=== PATIENT | female | born 1980 | race Caucasian/White ===

== ENCOUNTER → 2018-12-16 | Outpatient (CLI) | payer BC ==
[2015-05-18 08:00] VITALS: BP 112/96
[~2018-12-16] MED LIST: ONDA8TAB12 PO; TRAM50TA PO
--- NOTE | 2018-12-16 10:45 | RAD ---
EXAM: Pelvic sonogram. HISTORY: Pain. TECHNIQUE: Sonographic imaging of the pelvis was performed. COMPARISON: None. FINDINGS: The uterus measures 10.1 x 4.4 x 5.5 cm. The endometrial stripe measures 5 mm in thickness. The ovaries are normal in size and demonstrate normal blood flow. There is no adnexal mass or cyst. There is no pelvic free fluid. IMPRESSION: Unremarkable pelvic sonogram. Electronically signed by: Gricel Suero MD (12/16/2018 10:42 AM) [place] [id number]
== END | disposition home or self-care (01) ==
LOC: US 08:43
PROVIDERS: ATTEND Physician Assistant Medical
DX: R10.31 Right lower quadrant pain (principal)
CPT/HCPCS: 76856

== ENCOUNTER → 2019-07-07 | Outpatient (CLI) | payer BC ==
[2015-05-18 08:00] VITALS: BP 112/96
--- NOTE | 2019-07-07 12:19 | RAD ---
CHEST PA LATERAL History: Cough Comparison: May 18, 2015 Findings: 2 views of the chest are submitted. There is no infiltrate, pneumothorax, or effusion. Pericardial cardiac silhouette is within normal limits in size. Impression: 1. There is no radiographic evidence of acute cardiopulmonary disease. Electronically signed by: Jose To MD (07/07/2019 12:16 PM) [id number]
== END ==
LOC: RAD 11:55
PROVIDERS: ATTEND Family Medicine
DX: R05 Cough (principal)
CPT/HCPCS: 71046

== ENCOUNTER → 2020-07-18 | Outpatient (CLI) | payer BC ==
[2015-05-18 08:00] VITALS: BP 112/96
--- NOTE | 2020-07-18 12:35 | RAD ---
XR ABDOMEN 2V History: Right-sided abdominal pain. Comparison: CT abdomen pelvis 05/18/2015. Technique: Supine and upright views of the abdomen. Findings: No subdiaphragmatic free air. Normal bowel gas pattern. No evidence of organomegaly. A couple ovoid a pproximately 7 mm diameter densities in the right lower quadrant are favored to represent material in the fecal stream. No evidence of nephro ureterolithiasis. Redemonstrated pelvic phleboliths. L4-L5 d egenerative disc disease. No acute osseous abnormality. Soft tissues are unremarkable. Impression: 1. No acute abdominal findings. Normal bowel gas pattern. No free air. No nephroureterolithiasis. Electronically signed by: Bossman Neal MD (07/18/2020 12:33 PM) [facility]
== END ==
LOC: RAD 09:55
PROVIDERS: ATTEND Physician Assistant Medical
DX: R10.9 Unspecified abdominal pain (principal)
CPT/HCPCS: 74019

== ENCOUNTER → 2021-06-03 | Outpatient (CLI) | payer BC ==
[2015-05-18 08:00] VITALS: BP 112/96
--- NOTE | 2021-06-03 14:02 | RAD ---
Right ankle 3 views: Reason for examination: Fell with right foot and ankle pain. No acute fracture or dislocation is seen. The bone density is normal. No abnormal periosteal reaction is seen. Ankle joint is maintained. IMPRESSION: No acute bony abnormality at the right ankle. Right foot 3 views: There is a transverse fracture present at the proximal end of the fifth metatarsal bone without displ acement. No other site of fracture or dislocation is seen. The bone density is normal. No abnormal pe riosteal reaction is seen. Joint spaces are maintained. IMPRESSION: Transverse fracture at the proximal end of the fifth metatarsal bone without displacement. Electronically signed by: Surekha Barkley MD (06/03/2021 2:00 PM) [facility]
== END ==
LOC: RAD 10:11
PROVIDERS: ATTEND Physician Assistant
DX: S92.351A Displaced fracture of fifth metatarsal bone, right foot, initial encounter for closed fracture (principal); W19.XXXA Unspecified fall, initial encounter; Y93.89 Activity, other specified; Y92.89 Other specified places as the place of occurrence of the external cause; Y99.8 Other external cause status
CPT/HCPCS: 73610; 73630

== ENCOUNTER → 2021-07-05 | Outpatient (CLI) | payer BC ==
[2015-05-18 08:00] VITALS: BP 112/96
--- NOTE | 2021-07-05 13:55 | RAD ---
Exam: XR FOOT_RIGHT 3 VIEWS History: Right foot pain and injury after fall from truck. Comparison: 06/03/2021 Findings: Osseous mineralization is normal. There is redemonstration of a nondisplaced fracture lucency at the base of the fifth metatarsal approximately 6 mm from the proximal tuberosity. Lucency is slightly mor e conspicuous than prior exam consistent with remodeling. No periosteal reaction identified. No new f racture is identified. Soft tissues are unremarkable. Impression: 1. Redemonstrated nondisplaced subacute transverse fracture base of the right fifth metatarsal. Electronically signed by: Bossman Neal MD (07/05/2021 1:52 PM) [id number]
== END ==
LOC: RAD 12:59
PROVIDERS: ATTEND Physician Assistant
DX: S92.354A Nondisplaced fracture of fifth metatarsal bone, right foot, initial encounter for closed fracture (principal); W19.XXXA Unspecified fall, initial encounter; Y93.89 Activity, other specified; Y92.89 Other specified places as the place of occurrence of the external cause; Y99.8 Other external cause status
CPT/HCPCS: 73630